=== PATIENT | male | born 2000 | race Caucasian/White ===

== ENCOUNTER 2021-05-25 23:01 | Emergency (ER) | payer OTHER ==
[~2021-05-25 23:01] MED LIST: BACLOFEN 10MG T10 MG PO; CARAFATE S500 MG/TSP PO; FLEXERIL10 MG PO; IBUPROFEN800 MG PO; NAPROXEN500 MG PO; VOLTAREN **OUT50 MG PO
[2021-05-26] MEDS ORDERED: BACTRIM DS TAB1 EACH PO (02:19)
[2021-05-26] MEDS ORDERED: BACTROBAN NASAL1 GM TOP (02:19)
== END 2021-05-26 02:39 | disposition home or self-care (01) ==
LOC: FER 23:01
DX: L02.211 Cutaneous abscess of abdominal wall (principal); Z90.49 Acquired absence of other specified parts of digestive tract